=== PATIENT | male | born 2005 | race Caucasian/White ===

== ENCOUNTER 2023-11-26 20:01 | Emergency (ER) | payer OTHER, SELFPAY ==
--- OUTSIDE RECORDS SUMMARY | 2023-11-26 20:04 | XMS_ITS | Encounter Summary ---
Author Name Unknown Organization [facility] Address [address] [place] [phone] Phone Care Team Providers Care Oenologist Name Role Phone Adore Page MD Primary Care Provider [phone] Reason for Visit * Reason Comments Abnormal Lab New Patient Encounter Details Date Type Department Care Team ([facility] st Contact Info) Description 10/27/2023 10:45 AM MDT Office Visit [facility] [address] [facility] [address] [place], [place] [phone] [place] [address] [facility] [address] [place] [address] Essential proteinuria (Primary Dx); Hypercalcemia; Creatinine clearance-glomerular filtration outside reference range Social History Tobacco Use Types Packs/Day Years Used Date Smoking Tobacco: Never Smokeless Tobacco: Never Tobacco Cessation:Counseling Given: Not Answered Sex and Gender Information Value Date Recorded Sex Assigned at Not on file Gender Identity Not on file Sexual Orientation Not on file documented as of this encounter Last Filed Vital Signs Vital Sign Reading Time Taken Comments Blood Pressure 90/60 10/27/2023 11:02 AM EDT Pulse 60 10/27/2023 11:02 AM EDT Temperature - - Respiratory Rate - - Oxygen Saturation - - Inhaled Oxygen Concentration - - Weight 78 kg (172 lb) 10/27/2023 11:02 AM EDT Height - - Body Mass Index - - documented in this encounter Progress Notes * Ian Bautista MD - 10/27/2023 10:45 AM EDT [facility] Patient: Adria Puente Date of : 2005 Date of visit: 10/27/2023 Location: [id number] [place] Primary Care Physician: Adore Page MD, MD Referring Physician: No care team cdl driver to display Assessment For the last 5 years patient has been experiencing vague abdominal pain 1-2 times a year lasting 3-6 hours each time. Last episode was February 2023. CT scan of abdomen was normal. Kidneys were unremarkable. As part of workup proteinuria was noted which has been persistent. Last blood test in March 2023 shows he 115, creatinine 1.28, estimated GFR 83. Calcium 10.7. Urinalysis shows 2+ protein. CBC is normal. Blood pressure 90/60 with pulse 60. I need further blood and urine test to investigate proteinuria as well as hypercalcemia. Hypercalcemia may be explaining his abdominal pain. We need to rule out primary hyperparathyroidism. Patient may need a kidney biopsy. Plan Quantify proteinuria. Check PTH. Repeat blood and urine test. Ian Bautista MD Chief Complaint Patient presents with Abnormal Lab New Patient History of Present Illness: Adria Puente is a 17 y.o. male referred for A kidney evaluation. Past Medical History has no past medical history on file. has no past surgical history on file. Allergies: Patient has no known allergies. Medications: No current outpatient medications Family History: Grandmother has kidney stones. Social History: reports that he has never smoked. He has never used smokeless tobacco. Patient is a college student. Physical Exam: BP 90/60 (BP Location: Left arm, Patient Position: Sitting, BP Cuff Size: Adult) Pulse 60 Wt 172 lb (78 kg) No edema. Lungs are clear. Heart sounds are normal. Labs: I have reviewed the prior chart (including office notes, hospital notes, lab results, and imaging reports). documented in this encounter Plan of Treatment Scheduled Orders Name Type Priority Associated Diagnoses Orde r Schedule Antimyeloperoxidase (MPO) AB , Serum Lab Routine Essential proteinuria 1 Occurrences starting 10/27/2023 until 10/26/2024 Proteinase-3 AB (IA-3), Serum Lab Routine Essential proteinuria 1 Occurrences starting 10/27/2023 until 10/26/2024 documented as of this encounter Procedures Procedure Name Priority Date/Time Associated Diagnosis Comments ANTI-MPO ANTIBODIES Routine 10/27/2023 1 :58 PM EDT PTH, INTACT Routine 10/27/2023 1:58 PM EDT Hypercalcemia LUPUS PANEL (C3, C4, DSDNA), SERUM Routine 10/27/2023 1:58 PM EDT Essential proteinuria ANTIPROTEINASE 3 (IA-3) ABS Routine 10/27/2023 1:58 PM EDT URINALYSIS, COMPLETE, W/ REFLEX TO CULTURE Routine 10/27/2023 1:58 PM EDT Essential proteinuria TOTAL PROTEIN W/ CREATININE, URINE, RANDOM Routine 10/27/2023 1:58 PM EDT Essential proteinuria ALBUMIN / CREATININE RATIO, RANDOM, URINE Routine 10/27/2023 1:58 PM EDT Essential proteinuria MICROSCOPIC EXAMINATION Routine 10/27/2023 1:58 PM EDT CBC (INCLUDES DIFFERENTIAL/PLATELETS ) Routine 10/27/2023 1:58 PM EDT Essential proteinuria PHOSPHATE ( PHOSPHORUS), SERUM Routine 10/27/2023 1:58 PM EDT Hypercalcemia COMPREHENSIVE METABOLIC PANEL (CMP) Routine 10/27/2023 1:58 PM EDT Hypercalcemia documented in this encounter Results * Antiproteinase 3 (Pr-3) Abs (10/27/2023 1:58 PM EDT) Antiproteinase 3 (PR3) Antibodies <0.2 0.0 - 0.9 units [facility] 1 10/27/2023 1:58 PM EDT 10/27/2023 Narrative [facility] - 10/30/2023 9:35 PM EDT Performed at: ??01 - [facility] [address] ??[id number] Meat Selector: Marquise Storey MD, Phone: ??[phone] Ian Bautista MD LAB BLOOD ORDERABLES Performing Organization Address [facility] Co de Phone Number [facility] * Anti-MPO Antibodies (10/27/2023 1:58 PM EDT) Pathologist [facility] Myeloperoxidase Ab, Serum <0.2 0.0 - 0.9 units [facility] 1 10/27/2023 1:58 PM EDT 10/27/2023 Narrative [facility] - 10/30/2023 9:35 PM EDT Performed at: ??01 - [facility] ??[id number] Meat Selector: Marquise Storey MD, Phone: ??[phone] Ian Bautista MD LAB BLOOD ORDERABLES Performing Organization Address [facility] Phone Number [facility] 1 * (ABNORMAL) Microsopic Examination (10/27/2023 1:58 PM EDT) Pathologist [facility] Leukocytes, Urine sediment None seen 0 - 5 /hpf [facility] 1 Erythrocytes, Urine sediment 0-2 0 - 2 /hpf [facility] 1 Epithelial cells, Urine sediment None seen 0 - 10 /hpf [facility] 1 Casts, Urine sediment None seen None seen /lpf [facility] 1 Unidentified crystals, Urine sediment Present(A) N/A [facility] 1 Crystals, Urine sediment Calcium Oxalate N/A [facility] 1 Bacteria, Urine sediment None seen None seen/Few [facility] 1 10/27/2023 1:58 PM EDT 10/27/2023 Narrative [facility] - 10/30/2023 9:35 PM EDT Performed at: ??01 - [address] ??[id number] Meat Selector: Marquise Storey MD, Phone: ??[phone] Ian Bautista MD LAB BLOOD ORDERABLES Performing Organization Address [facility] Co de Phone Number [facility] * Lupus Panel (C3, C4, dsDNA), Serum (10/27/2023 1:58 PM EDT) [facility] Complement C4, Serum/Plasma 24 12 - 38 mg/dL [facility] 1 Complement C3, Serum/Plasma 110 82 - 167 mg/dL [facility] 1 DNA double strand Ab, Serum 2 0 - 9 IU/mL [facility] 1 Comment: ? Negative ?<5 ? Equivocal ??5 - 9 ? Positive ?>9 Chromatin Ab, Serum/Plasma <0.2 0.0 - 0.9 AI [facility] 1 DAMION, Serum Negative Negative [facility] 1 10/27/2023 1:58 PM EDT 10/27/2023 Narrative [facility] - 10/30/2023 9:35 PM EDT Performed at: ??01 - [address] ??[id number] Meat Selector: Marquise Storey MD, Phone: ??[phone] Ian Bautista MD LAB BLOOD ORDERABLES [facility] 1 * Phosphate (as Phosphorus), Serum (10/27/2023 1:58 PM EDT) [facility] Phosphate, Serum/Plasma 3.5 3.4 - 5.5 mg/dL [facility] 1 Blood (Blood, Venous) 10/27/2023 1:58 PM EDT 10/27/2023 Narrative [facility] - 10/30/2023 9:35 PM EDT Performed at: ??01 - [facility] ??[id number] Meat Selector: Marquise Storey MD, Phone: ??[phone] Ian Bautista MD LAB BLOOD ORDERABLES Performing Organization Address [facility] Co de Phone Number [facility] * (ABNORMAL) PTH, Intact (10/27/2023 1:58 PM EDT) Pathologist [facility] PTH, Intact, Serum/Plasma 12(L) 15 - 65 pg/mL [facility] 1 10/27/2023 1:58 PM EDT 10/27/2023 Narrative [facility] - 10/30/2023 9:35 PM EDT Performed at: ??01 - [facility] ??[id number] Meat Selector: Marquise Storey MD, Phone: ??[phone] Ian Bautista MD LAB BLOOD ORDERABLES Performing Organization Address [facility] Co de Phone Number [facility] * (ABNORMAL) Comprehensive Metabolic Panel (CMP) (10/27/2023 1:58 PM EDT) Pathologist [facility] Glucose, Serum/Plasma 74 70 - 99 mg/dL [facility] 1 Urea nitrogen, Serum/Plasma (BUN) 19 6 - 20 mg/dL [facility] 1 Creatinine, Serum/Plasma 1.10 0.76 - 1.27 mg/dL [facility] 1 Estimated Glomerular Filtration Rate (eGFR) 99 >59 mL/min/1. 73 [facility] 1 Urea nitrogen/Creatinine, Serum/Plasma 17 9 - 20 [facility] 1 Sodium, Serum/Plasma 141 134 - 144 mmol/L [facility] 1 Potassium, Serum/Plasma 5.0 3.5 - 5.2 mmol/L [facility] 1 Chloride, Serum/Plasma 101 96 - 106 mmol/L [facility] 1 Carbon dioxide CO2), total, Serum/Plasma 28 20 - 29 mmol/L [facility] 1 Calcium, Serum/Plasma 10.3(H) 8.7 - 10.2 mg/dL [facility] 1 TOTAL PROTEIN 7.0 6.0 - 8.5 g/dL [facility] 1 Albumin, Serum/Plasma 4.8 4.3 - 5.2 g/dL [facility] 1 Globulin, Serum 2.2 1.5 - 4.5 g/dL [facility] 1 Albumin/Globulin, Serum/Plasma 2.2 1.2 - 2.2 [facility] 1 Bilirubin, total, Serum/Plasma 0.4 0.0 - 1.2 mg/dL [facility] 1 Alkaline phosphatase, Serum/Plasma 66 51 - 125 IU/L [facility] 1 Aspartate Aminotransferase (AST), Serum/Plasma 17 0 - 40 IU/L [facility] 1 Alanine Aminotransferase (ALT), Serum/Plasma 14 0 - 44 IU/L [facility] 1 Blood (Blood, Venous) 10/27/2023 1:58 PM EDT 10/27/2023 Narrative [facility] - 10/30/2023 9:35 PM EDT Performed at: ??01 - [address] ??[id number] Meat Selector: Marquise Storey MD, Phone: ??[phone] Ian Bautista MD LAB BLOOD ORDERABLES [facility] * CBC (includes Differential/Platelets) (10/27/2023 1:58 PM EDT) Pathologist [facility] Leukocytes, Blood 5.8 3.4 - 10.8 x10E3/uL [facility] 1 Erythrocytes (RBC) 5.24 4.14 - 5.80 x10E6/uL [facility] 1 Hemoglobin (HGB) 16.4 13.0 - 17.7 g/dL [facility] 1 Hematocrit (HCT) 48.3 37.5 - 51.0 % [facility] 1 MCV 92 79 - 97 fL [facility] 1 MCH 31.3 26.6 - 33.0 pg [facility] 1 MCHC 34.0 31.5 - 35.7 g/dL [facility] 1 Erythrocyte Distribution Width (RDW) 12.0 11.6 - 15.4 % [facility] 1 Platelets, Blood 238 150 - 450 x10E3/uL [facility] 1 Neutrophils/100 leukocytes, Blood 65 Not Estab. % [facility] 1 Lymphocytes/100 leukocytes, Blood 27 Not Estab. % [facility] 1 Monocytes/100 leukocytes, Blood 5 Not Estab. % [facility] 1 Eosinophils/100 leukocytes, Blood 2 Not Estab. % [facility] 1 Basophils/100 leukocytes, Blood 1 Not Estab. % [facility] 1 Neutrophils, Blood 3.7 1.4 - 7.0 x10E3/uL [facility] 1 Lymphocytes, Blood 1.5 0.7 - 3.1 x10E3/uL [facility] 1 Monocytes, Blood 0.3 0.1 - 0.9 x10E3/uL [facility] 1 Eosinophils, Blood 0.1 0.0 - 0.4 x10E3/uL [facility] 1 Basophils, Blood 0.1 0.0 - 0.2 x10E3/uL [facility] 1 Immature granulocytes/100 leukocytes, Blood 0 Not Estab. % [facility] 1 Immature granulocytes, Blood 0.0 0.0 - 0.1 x10E3/uL [facility] 1 Blood (Blood, Venous) 10/27/2023 1:58 PM EDT 10/27/2023 Narrative [facility] - 10/30/2023 9:35 PM EDT Performed at: ??01 - [facility] ??[id number] Meat Selector: Marquise Storey MD, Phone: ??[phone] Ian Bautista MD LAB BLOOD ORDERABLES Performing Organization Address [facility]/State/[facility] Co de Phone Number [facility] * (ABNORMAL) Total Protein w/ Creatinine, Urine, Random (10/27/2023 1:58 PM EDT) Creatinine, Urine 197.5 Not Estab. mg/dL [facility] 1 Protein, Urine 45.4 Not Estab. mg/dL [facility] 1 Protein/Creatin ine, Urine 230(H) 0 - 200 mg/g creat [facility] 1 10/27/2023 1:58 PM EDT 10/27/2023 Narrative [facility] - 10/30/2023 9:35 PM EDT Performed at: ??01 - [facility] [address] ??[id number] Meat Selector: Marquise Storey MD, Phone: ??[phone] Ian Bautista MD LAB URINE ORDERABLES Performing Organization Address [facility] de Phone Number [facility] * (ABNORMAL) Urinalysis, Complete, w/ Reflex to Culture (10/27/2023 1:58 PM EDT) Specific gravity of Urine 1.024 1.005 - 1.030 [facility] 1 pH of Urine 6.5 5.0 - 7.5 [facility] 1 Color of Urine Yellow Yellow [facility] 1 Appearance of Urine Clear Clear [facility] 1 Leukocyte esterase, Urine Negative Negative [facility] 1 Protein, Urine 1+(A) Negative/Tra ce [facility] 1 Glucose, Urine Negative Negative [facility] 1 Ketones, Urine Trace(A) Negative [facility] 1 Hemoglobin, Urine Negative Negative [facility] 1 Bilirubin, total, Urine Negative Negative [facility] 1 Urobilinogen, Urine 0.2 0.2 - 1.0 mg/dL [facility] 1 Nitrite, Urine Negative Negative [facility] 1 Microscopic Examination See below: [facility] 1 Comment:Microscopic was abner cated and was performed. Urinalysis Reflex Comment [facility] 1 Comment:This specimen will n ot reflex to a Urine Culture. 10/27/2023 1:58 PM EDT 10/27/2023 Narrative [facility] - 10/30/2023 9:35 PM EDT Performed at: ??01 - [facility] [address] ??[id number] Meat Selector: Marquise Storey MD, Phone: ??[phone] Ian Bautista MD LAB BLOOD ORDERABLES Performing Organization Address [facility]/ZIP Co de Phone Number [facility] * (ABNORMAL) Albumin/Creatinine Ratio, Random, Urine (10/27/2023 1:58 PM EDT) Microalbumin, Urine 212.9 Not Estab. ug/mL [facility] 1 Albumin/Creatin ine, Urine 108(H) 0 - 29 mg/g creat [facility] 1 Comment: ? Normal: ?0 - ??29 ? Moderately increased: 30 - 300 ? Severely increased: ? >300 Urine (Urine, Clean Catch) 10/27/2023 1:58 PM EDT 10/27/2023 Narrative [facility] - 10/30/2023 9:35 PM EDT Performed at: ??01 - [facility] [address] ??[id number] Meat Selector: Marquise Storey MD, Phone: ??[phone] Ian Bautista MD LAB URINE ORDERABLES Performing Organization Address City/State/[facility] Co de Phone Number [facility] 1 documented in this encounter Visit Diagnoses Diagnosis Essential proteinuria- Primary Hypercalcemia Creatinine clearance-glomerular filtration outside reference range documented in this encounter Care Teams Oenologist Relationship Specialty [place] [address] [facility] [address] [place] [id number] PCP - General Gastroenterology 10/26/23 documented as of this encounter
--- OUTSIDE RECORDS SUMMARY | 2023-11-26 20:04 | XMS_ITS | Clinical Summary ---
Author Name Unknown Organization [facility] Address [address] [place] [address] Care Team Providers Care Formstone Fitter Name Role Phone Adore Page Primary Care Provider [phone] Allergies No known active allergies Immunizations Name Administration Dates Next Due Influenza TIV (IM) 05/13/2014(Deferred: Patient Refused - did get 2014 vaccine) Social History Tobacco Use Types Packs/Day Years Used Date Smoking Tobacco: Never Sex and Gender Information Value Date Recorded Sex Assigned at Not on file Gender Identity Not on file Sexual Orientation Not on file Last Filed Vital Signs Vital Sign Reading Time Taken Comments Blood Pressure 113/48 07/19/2021 10:13 PM EST Pulse 60 07/19/2021 10:13 PM EST Temperature 36.7 ??C (98 ??F) 07/19/2021 4:19 PM EST Respiratory Rate 16 07/19/2021 10:13 PM EST Oxygen Saturation 98% 07/19/2021 10:13 PM EST Inhaled Oxygen Concentration - - Weight 70.3 kg (155 lb) 07/19/2021 4:19 PM EST Height 185.4 cm (6' 1) 07/19/2021 4:19 PM EST Body Mass Index 20.45 07/19/2021 4:19 PM EST Plan of Treatment Health Maintenance Due Date Last Done Comments HIV Screening 2005 Hepatitis C Screening 2005 HPV Vaccines (1 - Male 3-dos e series) 11/09/2018 DTaP,Tdap,and Td Vaccines (1 - Tdap) 11/09/2022 Hepatitis B Vaccines (1 of 3 - 19+ 3-dose series) 11/09/2022 Influenza Vaccine (Season Ended) 2024 06/03/20 Respiratory Syncytial Virus (RSV) Immunizations HM Topic for 60 years or older & patients (1 - 1-dose 60+ series) 2063 Pneumococcal 65+ (1 of 1 - PCV) 11/09/2068 HIB Vaccines Aged Out No longer eligi ble based on patient's age to complete this topic Hepatitis A Vaccines Aged Out No long er eligible based on patient's age to complete this topic IPV Vaccines Aged Out No longer eligi ble based on patient's age to complete this topic Meningococcal Vaccine Aged Out No zach familia eligible based on patient's age to complete this topic Pneumococcal 0-64 yrs Aged Out No zach familia eligible based on patient's age to complete this topic Respiratory Syncytial Virus (RSV) Immunizations HM Topic (Under 20 months) Aged Out No longer eligible b ased on patient's age to complete this topic Care Teams Formstone Fitter Relationship Specialty Start Date End Date Adore Page [address] [place], [place] PCP - General Internal Medicine 07/19/21
--- OUTSIDE RECORDS SUMMARY | 2023-11-26 20:04 | XMS_ITS | Clinical Summary ---
Author Name Unknown Organization [facility] Address [address] [place] [address] Phone Care Team Providers Care Technology Integration Specialist Name Role Phone Adore Page MD Primary Care Provider [phone] Allergies No known active allergies Medications No known medications Active Problems Problem Noted Date Diagnosed Date Hypercalcemia 10/31/2023 Encounters Date Type Department Care Team Description 10/27/2023 10:45 AM MDT [facility] [address] [phone] Ian Bautista MD Essential proteinuria (Primary Dx); Hypercalcemia; Creatinine clearance-glomerular filtration outside reference range from Last 3 Months Social History Tobacco Use Types Packs/Day Years [...] - - Body Mass Index - - Plan of Treatment Health Maintenance Due Date Last Done Comments Pneumococcal PPSV23 Highest Risk Adult (1 of 3 - PCV13 ) 11/09/2022 Influenza Vaccine (Season Ended) 2024 Procedures Procedure Name Priority Date/Time Associated Diagnosis Comments ANTIPROTEINASE 3 (GA-3) ABS Routine 10/27/2023 1:58 PM EDT ANTI-MPO ANTIBODIES Routine 10/27/2023 1 :58 PM EDT MICROSCOPIC EXAMINATION Routine 10/27/2023 1:58 PM EDT LUPUS PANEL (C3, C4, DSDNA), SERUM Routine 10/27/2023 1:58 PM EDT Essential proteinuria PHOSPHATE ( PHOSPHORUS), SERUM Routine 10/27/2023 1:58 PM EDT Hypercalcemia PTH, INTACT Routine 10/27/2023 1:58 PM EDT Hypercalcemia COMPREHENSIVE METABOLIC PANEL (CMP) Routine 10/27/2023 1:58 PM EDT Hypercalcemia CBC (INCLUDES DIFFERENTIAL/PLATELETS ) Routine 10/27/2023 1:58 PM EDT Essential proteinuria TOTAL PROTEIN W/ CREATININE, URINE, RANDOM Routine 10/27/2023 1:58 PM EDT Essential proteinuria URINALYSIS, COMPLETE, W/ REFLEX TO CULTURE Routine 10/27/2023 1:58 PM EDT Essential proteinuria ALBUMIN / CREATININE RATIO, RANDOM, URINE Routine 10/27/2023 1:58 PM EDT Essential proteinuria from Last 3 Months Results * Anti-MPO Antibodies (10/27/2023 1:58 PM EDT) Myeloperoxidase Ab, Serum <0.2 0.0 - 0.9 units [facility] 1 10/27/2023 1:58 PM EDT 10/27/2023 Narrative [facility] - 10/30/2023 9:35 PM EDT Performed at: ??01 - [facility] [address] ??[id number] Bond Analyst: Marquise Storey MD, Phone: ??[phone] Ian Bautista MD LAB BLOOD ORDERABLES [facility] * (ABNORMAL) PTH, Intact (10/27/2023 1:58 PM EDT) [facility] PTH, Intact, Serum/Plasma 12(L) 15 - 65 pg/mL [facility] 1 10/27/2023 1:58 PM EDT 10/27/2023 Narrative [facility] - 10/30/2023 9:35 PM EDT Performed at: ??01 - [facility] ??[id number] Bond Analyst: Marquise Storey MD, Phone: ??[phone] Ian Bautista MD LAB BLOOD ORDERABLES [facility] 1 * Lupus Panel (C3, C4, dsDNA), Serum (10/27/2023 1:58 PM EDT) [facility] Complement C4, Serum/Plasma 24 12 - 38 [...] 9:35 PM EDT Performed at: ??01 - [facility] ??[id number] Bond Analyst: Marquise Storey MD, Phone: ??[phone] Ian Bautista MD LAB BLOOD ORDERABLES Performing Organization Address [facility] de Phone Number [facility] * Antiproteinase 3 (Pr-3) Abs (10/27/2023 1:58 PM EDT) Pathologist [facility] Antiproteinase 3 (PR3) Antibodies <0.2 0.0 - 0.9 units [facility] 1 10/27/2023 1:58 PM EDT 10/27/2023 Narrative [facility] - 10/30/2023 9:35 PM EDT Performed at: ??01 - [facility] ??[id number] Bond Analyst: Marquise Storey MD, Phone: ??[phone] Ian Bautista MD LAB BLOOD ORDERABLES Performing Organization Address [facility] de Phone Number [facility] * (ABNORMAL) Urinalysis, Complete, w/ Reflex to Culture (10/27/2023 1:58 PM EDT) [facility] Specific gravity of Urine 1.024 1.005 - [...] 9:35 PM EDT Performed at: ??01 - [facility] ??[id number] Bond Analyst: Marquise Storey MD, Phone: ??[phone] Ian Bautista MD LAB BLOOD ORDERABLES Performing Organization Address [facility] Phone Number [facility] * (ABNORMAL) Total Protein w/ Creatinine, Urine, Random (10/27/2023 1:58 PM EDT) Creatinine, Urine 197.5 Not Estab. mg/dL [facility] 1 Protein, Urine 45.4 Not Estab. mg/dL [facility] 1 Protein/Creatin ine, Urine 230(H) 0 - 200 mg/g creat [facility] 1 10/27/2023 1:58 PM EDT 10/27/2023 Narrative [facility] - 10/30/2023 9:35 PM EDT Performed at: ??01 - [facility] ??[id number] Bond Analyst: Marquise Storey MD, Phone: ??[phone] Ian Bautista MD LAB URINE ORDERABLES Performing Organization Address [facility] Phone Number [facility] 1 * (ABNORMAL) Albumin/Creatinine Ratio, Random, [...] PM EDT Performed at: ??01 - [facility] [address] ??[id number] Bond Analyst: Marquise Storey MD, Phone: ??[phone] Ian Bautista MD LAB URINE ORDERABLES Performing Organization Address [facility] de Phone Number [facility] * (ABNORMAL) Microsopic Examination (10/27/2023 1:58 PM EDT) Leukocytes, Urine sediment None seen 0 - [...] PM EDT Performed at: ??01 - [facility] [address] ??[id number] Bond Analyst: Marquise Storey MD, Phone: ??[phone] Ian Bauitsta MD LAB BLOOD ORDERABLES Performing Organization Address [facility] de Phone Number [facility] 1 * CBC (includes Differential/Platelets) (10/27/2023 1:58 PM EDT) Leukocytes, Blood 5.8 3.4 - 10.8 x10E3/uL [...] PM EDT Performed at: ??01 - [facility] [address] ??[id number] Bond Analyst: Marquise Storey MD, Phone: ??[phone] Ian Bautista MD LAB BLOOD ORDERABLES [facility] 1 * Phosphate (as Phosphorus), Serum (10/27/2023 1:58 PM EDT) Phosphate, Serum/Plasma 3.5 3.4 - 5.5 mg/dL [facility] 1 Blood (Blood, Venous) 10/27/2023 1:58 PM EDT 10/27/2023 Narrative [facility] - 10/30/2023 9:35 PM EDT Performed at: ??01 - [facility] [address] ??[id number] Bond Analyst: Marquise Storey MD, Phone: ??[phone] Ian Bautista MD LAB BLOOD ORDERABLES Performing Organization Address [facility]/ZIP Co de Phone Number [facility] 1 * (ABNORMAL) Comprehensive Metabolic Panel (CMP) (10/27/2023 1:58 PM EDT) Glucose, Serum/Plasma 74 70 - 99 mg/dL [...] PM EDT Performed at: ??01 - [facility] [address] ??[id number] Bond Analyst: Marquise Storey MD, Phone: ??[phone] Ian Bautista MD LAB BLOOD ORDERABLES Performing Organization Address City/State/[facility] Co de Phone Number [facility] 1 from Last 3 Months Care Teams Technology Integration Specialist Relationship Specialty [place] [address] [facility] [address] [phone] PCP - General Gastroenterology 10/26/23
--- OUTSIDE RECORDS SUMMARY | 2023-11-26 20:05 | XMS_ITS ---
Author Name [facility] Organization Unknown Assessment and Plan ID Update Date Source Alert Text [facility] Physician [id number] 03/28/2023 [facility] Physician [facility] Date: [id number]:27:00.000-04 :00eventType: Outpatient Registration [facility] Physician [facility]-[id number] 03/28/2023 [facility] admitReason: ABDOMINAL PAINDate: [id number]:27:00.000-04 :00eventType: Outpatient Registration [facility] Physician [facility]- 08/14/2023 [facility] Physician [facility] Physician [facility] Physician [facility]- 08/14/2023 [facility] Physician [facility] Physician [facility] [id number] 12/14/2020 [facility] [id number] COVID Vaccination: This patient has received the [employer] COVID-19 vaccination on 12/14/2020 with lot number [id number] at [facility].
--- OUTSIDE RECORDS SUMMARY | 2023-11-26 20:05 | XMS_ITS | Clinical Summary ---
Author Name Unknown Organization [facility] Address [address] [place] [address] Care Team Providers Care Radio Mechanic Name Role Phone Unavailable Primary Care Provider Unavailabl e Social History Tobacco Use Types Packs/Day Years Used Date Smoking Tobacco: Never Assessed Sex and Gender Information Value Date Recorded Sex Assigned at Not on file Gender Identity Not on file Sexual Orientation Not on file Plan of Treatment Not on file
[2023-11-26 20:15] VITALS: BP 147/74; PULSE 56; RESP 16; TEMP 36.6; O2SAT 98; BMI 23.1
[2023-11-26 20:53] LABS: Strep A DNA Probe* NOT DETECTED (Not Detectd)
--- NOTE | 2023-11-26 21:04 | ED_ITS ---
HPI - General Adult General Chief complaint: Sore Throat Stated complaint: lymph nodes swelling, hard to eat and swallow food Time Seen by Provider: 11/26/23 20:51 History of Present Illness HPI narrative: This 18-year-old male comes in reporting sore throat over the past week or so. He does not report any fevers or cough. He does not have any trismus or muffled voice. He feels like his neck in general is a bit swollen. Related Data Home Medications Medication Instructions Recorded Confirmed albuterol sulfate 90 mcg/actuation 2 puff inhalation Q6H PRN 11/25/22 11/25/22 aerosol inhaler (Ventolin HFA) cetirizine 10 mg tablet (Zyrtec) 20 mg PO QDAY PRN 11/25/22 11/25/22 Allergies Allergy/AdvReac Type Severity Reaction Status Date / Time No Known Drug Allergies Allergy Verified 11/25/22 15:12 Review of Systems Status of ROS: Reports: 10 or more systems reviewed and unremarkable except as noted in History and below Narrative: Constitutional: No fevers, no weight gain or loss. Eyes: No discharge. No vision changes. HENT: No congestion, no ear pain. Sore throat as described above. Cardiovascular: No chest pain, no palpitations. Respiratory: No shortness of breath, no wheezes, no cough. Gastrointestinal: No abdominal pain, no vomiting, no diarrhea. Genitourinary: No dysuria, no hematuria. Musculoskeletal: Normal range of motion. Skin: No rashes, no pruritis. Neurological: No dizziness, weakness, sensory change, speech change. Endo/Heme/Allergies: No bruising or bleeding. No polydipsia. Pysch: no suicidality, no anxiety, no insomnia. All other systems reviewed and are negative. [facility] Social History Smoking Status: Never smoker Exam Narrative: Exam Narrative: Constitutional: Well-developed, well-nourished, no acute distress. HEENT: Normocephalic, atraumatic. Oropharynx appears normal without tonsillar swelling or exudate. There is some mild erythema. Neck: Normal range of motion. Nontender. Supple. Heart: Regular. No murmurs. Normal rate. Intact distal pulses. Lungs: Clear to auscultation. No chest discomfort. No wheezes, rhonchi, or rales. Abdomen: Normal bowel sounds. Nontender. No rebound tenderness. Genitalia: Deferred. Back: No midline tenderness. Normal range of motion. Extremities: Normal range of motion. No injury. Skin: Intact. No rash. Warm. No erythema or pallor. Neurologic: No altered sensation. No weakness. Alert and oriented. Psychiatric: No suicidality. No anxiety or depression. No insomnia. Nursing notes and vitals signs are reviewed. Const: Vital Signs, click to edit/add: Vital Signs - 24 hr 11/26/23 20:15 Temperature 97.9 F Pulse Rate [Left P ulse Oximeter] 56 L Respiratory Rate 16 Blood Pressure [Ri ght Upper Arm] 147/74 H Pulse Oximetry 98 Oxygen Delivery Me thod Room Air Course Vital Signs Vital signs: Initial Vital Signs Temperature 97.9 F 11/26/23 20:15 Temperature Source Temporal Artery Scan 11/26/23 20:15 Pulse Rate 56 L 11/26/23 20:15 Pulse Rhythm Regular 11/26/23 20:15 Respiratory Rate 16 11/26/23 20:15 Blood Pressure 147/74 H 11/26/23 20:15 Blood Pressure Mean 98 11/26/23 20:15 Blood Pressure Position Sitting 11/26/23 20:15 Pulse Oximetry 98 11/26/23 20:15 Oxygen Delivery Method Room Air 11/26/23 20:15 Vital Signs Temperature 97.9 F 11/26/23 20:15 Pulse Rate 56 L 11/26/23 20:15 Respiratory Rate 16 11/26/23 20:15 Blood Pressure 147/74 H 11/26/23 20:15 Pulse Oximetry 98 11/26/23 20:15 Oxygen Delivery Method Room Air 11/26/23 20:15 Temperature 97.9 F 11/26/23 20:15 Pulse Rate 56 L 11/26/23 20:15 Respiratory Rate 16 11/26/23 20:15 Blood Pressure 147/74 H 11/26/23 20:15 Pulse Oximetry 98 11/26/23 20:15 Oxygen Delivery Method Room Air 11/26/23 20:15 Medical Decision Making MDM Narrative Medical decision making narrative: This patient comes in reporting sore throat for the past week. Rapid strep test is obtained and returns negative. The patient's exam and vital signs are reassuring. I stated it is most likely due to a virus. He did receive an oral dose of dexamethasone 10 mg. I encouraged use of [id number]-qaw-obarbsu medicines for symptomatic relief and describe signs and symptoms that would indicate a need for return and re-evaluation. Lab Data Labs: Lab Results 11/26/23 Range/Units 20:24 Group A Strep DNA NOT DETECTED (Not Detectd) Discharge Plan Discharge Clinical Impression: Pharyngitis Patient Disposition: Home, Self-Care Condition: Stable Additional Instructions: Use [id number] medicines as needed and directed. Follow up with MD return if worsening symptoms happen. Prescriptions: No Action cetirizine [Zyrtec] 10 mg tablet 20 mg PO QDAY PRN albuterol sulfate [Ventolin HFA] 90 mcg/actuation HFA aerosol inhaler 2 puff inhalation Q6H PRN Stand Alone Forms: RayV Info Instructions
[2023-11-26] MEDS: dexAMETHasone 10 MG/ML inj PO (21:10)
--- OUTSIDE RECORDS SUMMARY | 2023-11-26 21:12 | XMS_ITS | Clinical Summary ---
Author Name Unknown Organization [facility] Address [address] [place] [address] Phone Care Team Providers Care End Polisher Name Role Phone Adore Page MD Primary Care Provider [phone] Allergies No known active allergies Medications No known medications Active Problems Problem Noted Date Diagnosed Date Hypercalcemia 10/31/2023 Encounters Date Type Department Care Team Description 10/27/2023 10:45 AM MDT [facility] [address] [phone] Ian Bautista MD Essential proteinuria (Primary Dx); [...] Priority Date/Time Associated Diagnosis Comments ANTIPROTEINASE 3 (IA-3) ABS Routine 10/27/2023 1:58 PM EDT ANTI-MPO [...] PM EDT Performed at: ??01 - [facility] [address] ??[id number] Assurance Manager: Marquise Storey MD, Phone: ??[phone] Ian Bautista MD LAB BLOOD ORDERABLES [facility] * (ABNORMAL) PTH, Intact (10/27/2023 1:58 PM EDT) [facility] PTH, Intact, Serum/Plasma 12(L) 15 - 65 pg/mL [facility] 1 10/27/2023 1:58 PM EDT 10/27/2023 Narrative [facility] - 10/30/2023 9:35 PM EDT Performed at: ??01 - [facility] ??[id number] Assurance Manager: Marquise Storey MD, Phone: ??[phone] Ian Bautista MD LAB BLOOD ORDERABLES [facility] 1 * Lupus Panel (C3, C4, dsDNA), Serum (10/27/2023 1:58 PM EDT) [facility] Complement C4, Serum/Plasma 24 12 - 38 [...] 9:35 PM EDT Performed at: ??01 - [facility] ??[id number] Assurance Manager: Marquise Storey MD, Phone: ??[phone] Ian Bautista MD LAB BLOOD ORDERABLES Performing Organization Address [facility] de Phone Number [facility] 1 * Antiproteinase 3 (Pr-3) Abs (10/27/2023 1:58 PM EDT) Pathologist [facility] Antiproteinase 3 (PR3) Antibodies <0.2 0.0 - 0.9 units [facility] 1 10/27/2023 1:58 PM EDT 10/27/2023 Narrative [facility] - 10/30/2023 9:35 PM EDT Performed at: ??01 - [facility] ??[id number] Assurance Manager: Marquise Storey MD, Phone: ??[phone] Ian Bautista MD LAB BLOOD ORDERABLES Performing Organization Address [facility] de Phone Number [facility] 1 * (ABNORMAL) Urinalysis, Complete, w/ Reflex to Culture (10/27/2023 1:58 PM EDT) [facility] Specific gravity of Urine 1.024 1.005 - [...] 9:35 PM EDT Performed at: ??01 - [facility] ??[id number] Assurance Manager: Marquise Storey MD, Phone: ??[phone] Ian Bautista MD LAB BLOOD ORDERABLES Performing Organization Address [facility] Phone Number [facility] 1 * (ABNORMAL) Total Protein w/ Creatinine, Urine, Random (10/27/2023 1:58 PM EDT) Creatinine, Urine 197.5 Not Estab. mg/dL [facility] 1 Protein, Urine 45.4 Not Estab. mg/dL [facility] 1 Protein/Creatin ine, Urine 230(H) 0 - 200 mg/g creat [facility] 1 10/27/2023 1:58 PM EDT 10/27/2023 Narrative [facility] - 10/30/2023 9:35 PM EDT Performed at: ??01 - [facility] ??[id number] Assurance Manager: Marquise Storey MD, Phone: ??[phone] Ian Bautista MD LAB URINE ORDERABLES Performing Organization Address [facility] Phone Number [facility] 1 * (ABNORMAL) [...] PM EDT Performed at: ??01 - [facility] [address] ??[id number] Assurance Manager: Marquise Storey MD, Phone: ??[phone] Ian Bautista MD LAB URINE ORDERABLES Performing Organization Address [facility] de Phone Number [facility] [...] PM EDT Performed at: ??01 - [facility] [address] ??[id number] Assurance Manager: Marquise Storey MD, Phone: ??[phone] Ian Bautista MD LAB BLOOD ORDERABLES Performing Organization Address [facility] de Phone Number [facility] [...] PM EDT Performed at: ??01 - [facility] [address] ??[id number] Assurance Manager: Marquise Storey MD, Phone: ??[phone] Ian Bautista MD LAB BLOOD ORDERABLES [facility] 1 * Phosphate (as Phosphorus), Serum (10/27/2023 1:58 PM EDT) Phosphate, Serum/Plasma 3.5 3.4 - 5.5 mg/dL [facility] 1 Blood (Blood, Venous) 10/27/2023 1:58 PM EDT 10/27/2023 Narrative [facility] - 10/30/2023 9:35 PM EDT Performed at: ??01 - [facility] [address] ??[id number] Assurance Manager: Marquise Storey MD, Phone: ??[phone] Ian Bautista MD LAB BLOOD ORDERABLES Performing Organization Address [facility]/ZIP Co de Phone Number [facility] 1 [...] PM EDT Performed at: ??01 - [facility] [address] ??[id number] Assurance Manager: Marquise Storey MD, Phone: ??[phone] Ian Bautista MD LAB BLOOD ORDERABLES Performing Organization Address City/State/[facility] Co de Phone Number [facility] 1 from Last 3 Months Care Teams End Polisher Relationship Specialty [place] [address] [facility] [address] [address] PCP - General Gastroenterology 10/26/23
--- OUTSIDE RECORDS SUMMARY | 2023-11-26 21:12 | XMS_ITS | Encounter Summary ---
Author Name Unknown Organization [facility] Address [address] [place] [address] Phone Care Team Providers Care Manager Fixed Income Name Role Phone Adore Page MD Primary Care Provider [phone] Reason for Visit * Reason Comments Abnormal Lab New Patient Encounter Details Date Type Department Care Team ([facility] st Contact Info) Description 10/27/2023 10:45 AM MDT [facility] [address] [facility] [address] [place], [place] [phone] [place] [address] [facility] [address] [place] [address] Essential proteinuria (Primary Dx); Hypercalcemia; Creatinine clearance-glomerular [...] - 10/27/2023 10:45 AM EDT [facility] Patient: Adria Puente Date of : 2005 Date of visit: 10/27/2023 Location: [id number] [place] Primary Care Physician: Adore Page MD, MD Referring Physician: No care body team member to display Assessment For the last 5 [...] Occurrences starting 10/27/2023 until 10/26/2024 Proteinase-3 AB (DE-3), Serum Lab Routine Essential proteinuria 1 Occurrences starting 10/27/2023 until 10/26/2024 documented as of this encounter Procedures Procedure Name Priority Date/Time Associated Diagnosis Comments ANTI-MPO ANTIBODIES Routine 10/27/2023 1 :58 PM EDT PTH, INTACT Routine 10/27/2023 1:58 PM EDT Hypercalcemia LUPUS PANEL (C3, C4, DSDNA), SERUM Routine 10/27/2023 1:58 PM EDT Essential proteinuria ANTIPROTEINASE 3 (DE-3) ABS Routine 10/27/2023 1:58 PM EDT URINALYSIS, [...] PM EDT Performed at: ??01 - [facility] [address] ??[id number] Butane Compressor Operator: Marquise Storey MD, Phone: ??[phone] Ian Bautista MD LAB BLOOD ORDERABLES Performing Organization Address [facility] Co de Phone Number [facility] 1 * Anti-MPO Antibodies (10/27/2023 1:58 PM EDT) Pathologist [facility] Myeloperoxidase Ab, Serum <0.2 0.0 - 0.9 units [facility] 1 10/27/2023 1:58 PM EDT 10/27/2023 Narrative [facility] - 10/30/2023 9:35 PM EDT Performed at: ??01 - [facility] ??[id number] Butane Compressor Operator: Marquise Storey MD, Phone: ??[phone] Ian Bautista MD LAB BLOOD ORDERABLES Performing Organization Address [facility] Phone Number [facility] 1 * (ABNORMAL) Microsopic Examination (10/27/2023 1:58 PM EDT) Pathologist [facility] Leukocytes, Urine sediment None seen 0 - [...] 9:35 PM EDT Performed at: ??01 - [facility] ??[id number] Butane Compressor Operator: Marquise Storey MD, Phone: ??[phone] Ian Bautista MD LAB BLOOD ORDERABLES Performing Organization Address [facility] Co de Phone Number [facility] 1 * Lupus Panel (C3, C4, dsDNA), Serum (10/27/2023 1:58 PM EDT) [facility] Complement C4, Serum/Plasma 24 12 - [...] 1 10/27/2023 1:58 PM EDT 10/27/2023 Narrative [facility] - 10/30/2023 9:35 PM EDT Performed at: ??01 - [address] ??[id number] Butane Compressor Operator: Marquise Storey MD, Phone: ??[phone] Ian Bautista MD [facility]OD [facility]AB[facility] * Phosphate (as Phosphorus), Serum (10/27/2023 1:58 PM EDT) [facility] Phosphate, Serum/Plasma 3.5 3.4 - 5.5 mg/dL [facility] 1 Blood (Blood, Venous) 10/27/2023 1:58 PM EDT 10/27/2023 Narrative [facility] - 10/30/2023 9:35 PM EDT Performed at: ??01 - [facility] ??[id number] Butane Compressor Operator: Marquise Storey MD, Phone: ??[phone] Ian Bautista MD LAB BLOOD ORDERABLES Performing Organization Address [facility] Co de Phone Number [facility] 1 * (ABNORMAL) PTH, Intact (10/27/2023 1:58 PM EDT) Pathologist [facility] PTH, Intact, Serum/Plasma 12(L) 15 - 65 pg/mL [facility] 1 10/27/2023 1:58 PM EDT 10/27/2023 Narrative [facility] - 10/30/2023 9:35 PM EDT Performed at: ??01 - [facility] ??[id number] Butane Compressor Operator: Marquise Storey MD, Phone: ??[phone] Ian Bautista MD LAB BLOOD ORDERABLES Performing Organization Address [facility] Co de Phone Number [facility] 1 * (ABNORMAL) Comprehensive Metabolic Panel (CMP) (10/27/2023 1:58 PM EDT) Pathologist [facility] Glucose, Serum/Plasma 74 70 - 99 mg/dL [...] 9:35 PM EDT Performed at: ??01 - [address] ??[id number] Butane Compressor Operator: Marquise Storey MD, Phone: ??[phone] Ian Bautista MD LAB BLOOD ORDERABLES [facility] 1 * CBC (includes Differential/Platelets) (10/27/2023 1:58 PM EDT) Pathologist [facility] Leukocytes, Blood 5.8 3.4 - 10.8 x10E3/uL [...] 9:35 PM EDT Performed at: ??01 - [facility] ??[id number] Butane Compressor Operator: Marquise Storey MD, Phone: ??[phone] Ian Bautista MD LAB BLOOD ORDERABLES Performing Organization Address [facility]/State/[facility] Co de Phone Number [facility] [...] PM EDT Performed at: ??01 - [facility] [address] ??[id number] Butane Compressor Operator: Marquise Storey MD, Phone: ??[phone] Ian Bautista MD LAB URINE ORDERABLES Performing Organization Address [facility] de Phone Number [facility] 1 [...] PM EDT Performed at: ??01 - [facility] [address] ??[id number] Butane Compressor Operator: Marquise Storey MD, Phone: ??[phone] Ian Bautista MD LAB BLOOD ORDERABLES Performing Organization Address [facility]/ZIP Co de Phone Number [facility] 1 [...] PM EDT Performed at: ??01 - [facility] [address] ??[id number] Butane Compressor Operator: Marquise Storey MD, Phone: ??[phone] Ian Bautista MD LAB URINE ORDERABLES Performing Organization Address City/State/[facility] Co de Phone Number [facility] 1 documented in this encounter Visit Diagnoses Diagnosis Essential proteinuria- Primary Hypercalcemia Creatinine clearance-glomerular filtration outside reference range documented in this encounter Care Teams Manager Fixed Income Relationship Specialty [place] [address] [facility] [address] [place] [id number] PCP - General Gastroenterology 10/26/23 documented as of this encounter
--- OUTSIDE RECORDS SUMMARY | 2023-11-26 21:12 | XMS_ITS | Clinical Summary ---
Author Name Unknown Organization [facility] Address [address] [place] [address] Care Team Providers Care Aerospace Quality Engineer Name Role Phone Adore Page Primary Care Provider [phone] Allergies No known active allergies Immunizations Name [...] age to complete this topic Care Teams Aerospace Quality Engineer Relationship Specialty Start Date End Date Adore Page [address] [place], [place] PCP - General Internal Medicine 07/19/21
--- OUTSIDE RECORDS SUMMARY | 2023-11-26 21:12 | XMS_ITS | Clinical Summary ---
Author Name Unknown Organization [facility] Address [address] [place] [address] Care Team Providers Care Shut Off Worker Name Role Phone Unavailable Primary Care Provider Unavailabl e Social History Tobacco Use Types Packs/Day Years Used Date Smoking Tobacco: Never Assessed Sex and Gender Information Value Date Recorded Sex Assigned at Not on file Gender Identity Not on file Sexual Orientation Not on file Plan of Treatment Not on file
--- OUTSIDE RECORDS SUMMARY | 2023-11-26 21:12 | XMS_ITS | Data Portability ---
Author Name Unknown Address [address] [place] [address] Phone [phone] Organization [facility] [employer], [facility] [facility]* Address [address] [place] [phone] Care Team Providers Care Chief Airport Guide Name Role Phone AMARJIT NELSON [employer] Supervisor [phone] RANDELL GAONA Primary Care Provider Assessment No assessment recorded. Plan of Treatment Reminders Order Date Submit Date Provider Last Modified By Organization Details Last Modified Time Details Appointments None recorded. Lab None recorded. Referral None recorded. Procedures None recorded. Surgeries None recorded. Imaging None recorded. Medication Orders Neilmed Sinus Rinse Complete with packet [id number], [address] [place], [address], 14:46:10 levocetiriz ine 5 mg tablet [email or web address], [address] [place], [address], 14:46:10 Pataday Once Daily Relief 0.7 % eye drops 2020 [email or web address] [facility], [address] [place], [address], 1 14:46:10 [place] Saline nasal gel 2020 021 [email or web address] [facility], [address] [place], [address], 14:46:10 Patient TargetsNo targets recorded. Patient Instructions Encounter Date Encounter Id Patient Instructions Last Modified By Organization Details Last Modified Time 04/06/2021 [id number] sino-nasal outco me test* Not available 04/06/2021 14:13:02 * If needed, you can schedule a virtual visit through our website [employer]. * Also available: ? 06/03 Virtual ER [email or web address] * Please follow up with our office and your provider as directed. We'd like to see you back for follow up in {{1 2 3 4 5 6 7 8 9 10 11 12 NOVEMBER#} } {{days weeks month s year 2021 as previously discussed with Dr. Nelson#}} Not available 04/06/2021 14:08:23 03/08/2021 [id number] sino-nasal outco me test* [email or web address] Not available 03/08/2021 14:46:10 Documentation of total provider time for this visit for this patient on today's date of service: {{New Patient: 15-29 min New Patient: 30-44 min New Patient: 45-59 min* New Patient: 60-74 min Established Patient: 10-19 min Established Patient: 20-29 min Established Patient: 30-39 min Established Patient: 40-54 min}} were spent by this provider on today's date of service for total time of care for the patient and this encounter to include: prep time, time with patient, coordination of care, correspondence with the patient's care team, other miscellaneous work and documentation of the above. Not available 03/08/2021 14:44:11 Reason for Referral None Reported. Results Created Date Observation Date Name Description Value Unit Range Abnormal Flag LastModifiedBy Organization Detail LastModifiedTime 03/08/20 21 03/08/2021 sino- nasal outco me test* [email or web address] score 16 Not Available In- Office Order Internal Use Only DO Not Attach Compendium DO Not Attach Compendium, Do Not Delete/merge, [id number] 03/08/2021 14:23:57 04/06/20 21 04/06/2021 sino- nasal outco me test* snot22 score 0 Not Available In- Office Order Internal Use Only DO Not Attach Compendium DO Not Attach Compendium, Do Not Delete/merge, [id number] 04/06/2021 07:49:05 Result Notes None recorded. Problems Name Status Onset Date Resolution Date Notes Provider Name and Address Organization Details Recorded Time No current problems or disability Active Lety Monsivais [facility] 03/08/2021 14:14:39 Allergic rhinitis Active 03/08/20 21 Amarjit Nelson MD [address] [place] [address],[place], [address] , [facility] 03/08/2021 14:43:36 Allergic urticaria Active 03/08/20 21 Amarjit Nelson MD [address] [place] [address],[place], [address] , [facility] 03/08/2021 14:45:15 Allergic conjunctivitis Active 04/06/20 21 USAMA Palomares [address] [place] [address],[place] A, [place], [address] , [facility] 04/06/2021 07:54:10 Abdominal pain Active 04/06/20 21 USAMA Palomares [address] [place] [address],[place] A, [place], [address] , [facility] 04/06/2021 07:54:14 Problem Notes None recorded. Procedures Surgical History Date Name Laterality Status Provider Name and Address Organization Details Recorded Time 04/06/20 Skin Test - Food - Brief completed Hortencia Best [facility] 04/06/2021 13:26:27 03/08/20 Procedure completed Lety Monsivais [facility] 03/08/2021 15:15:53 03/08/20 21 Skin Test - Aeroallergen Prick completed Letycyrus Monsivais [facility] 03/08/2021 15:02:23 Imaging Results None recorded. Procedure Notes None recorded. Medical Equipment None Reported. Allergies No known drug allergies Medications Name Sig Start Date Stop Date Status Note LastModified by Organization Details LastModified Time [place] Saline nasal gel Take 1 application 6 times a day by nasal route as directed. 2020 active Not Available Not Available Not Avai lable levocetirizi ne 5 mg tablet Take 1 tablet every day by oral route for 90 days. 2020 active Not Available Not Available Not Avai lable Neilmed Sinus Rinse Complete with packet 1 sinus rinse once to twice daily or more frequently if needed. Use before medicated nasal sprays and/or after allergen exposure or sinus infections. Rinse with gently warmed distilled water. Rinse gently and empty nose completely before medicated nasal sprays. Change bottle every 3 months, do not use if painful or if the rinse makes symptoms worse. Do not use tap water and never use well water. 2020 active Not Available Not Available Not Anne lable Pataday Once Daily Relief 0.7 % eye drops INSTILL 1 DROP INTO AFFECTED EYE(S) BY OPHTHALMIC ROUTE ONCE DAILY 2020 active Not Available Not Available Not Jayai lable Vitals Date Recorded Body height Body mass index (BMI) Body mass index (BMI) Percentile per age and sex Body weight Heart rate Oxygen saturation Oxygen saturation in Arterial blood by Pulse oximetry Provider Name and Address Organization Details Last Updated DateTime 185.42 cm 20.4 kg/m2 35 % 38229.8 2 g 57 /min 98 % 98 % Lety Monsivais [facility] 14:12:35 Date Recorded Body height Body mass index (BMI) Percentile per age and sex Body mass index (BMI) Body weight Provider Name and Address Organization Details Last Updated DateTime 04/06/2021 185.42 cm 34 % 20.4 kg/m2 60207.82 g Peewee Ellis [facility] 04/06/2021 12:40:24 Social History Question Answer Notes LastModified by Organizat ion Details LastModified Time Pet Sleeping Arrangement In Bed Information not available 03/08/2021 Do You Have Any Pets? Yes Information not available 03/08/2021 Sex: Male Functional Status None recorded. Mental Status None recorded. Family History Relationship Description Onset Age of this Age Resolved Age Notes Father Asthma Father Seasonal allergy Father Allergy to food Medical History No medical history recorded. Immunizations Vaccine Type Date Status Provider Name and Address Organization Details Recorded Time COVID-19, mRNA, LNP-S, PF, 30 mcg/0.3 mL dose 12/14/2020 completed [facility] 04/06/2021 13:30:51 COVID-19, mRNA, LNP-S, PF, 30 mcg/0.3 mL dose 11/22/2020 completed [facility] 04/06/2021 13:30:51 influenza, intradermal, quadrivalent, preservative free 05/14/2021 completed [facility] 04/06/2021 13:30:51 Influenza, injectable, MDCK, preservative free, quadrivalent 06/08/2020 completed [facility] 04/06/2021 13:30:51 Novel [id number], nasal 08/05/2009 completed [facility] 04/06/2021 13:30:51 Novel [id number], all formulations 06/02/2009 completed [facility] 04/06/2021 13:30:51 Influenza, injectable, MDCK, preservative free, quadrivalent 06/29/2018 completed [facility] 04/06/2021 13:30:51 Past Encounters Encounter ID Performer Location Encounter Start Date Encounter Closed Date Diagnosis/Indication Diagnosis SNOMED-CT Code [id number] Amarjit Nelson MD [facility] Office* [address] [place] [phone] 03/08/2021 13:57:00 03/08/2021 15:42:45 Allergic rhinitis 31730185 Allergic urticaria 32107 009 Anterior epistaxis 05265 4002 [id number] USAMA Palomares [facility]* [address] [place] [phone] 04/06/2021 12:35:18 04/06/2021 13:47:21 Allergic rhinitis 70768539 Allergic urticaria 57537 009 Abdominal pain 20404613 Allergic conjunctivitis 825047708 Health Concerns Section Related Observation LastModified by Organization Detai ls LastModified Time None Recorded Concern Status LastModified by Organization Details LastModified Time None Recorded Advance Directives Directive None Recorded Payers Encounter Date Sequence Insurance Name Policy Number Policy Arnett Covered Member ID Arnett Member ID Guarantor Name 04/06/2021 1 [facility] [id number] Kirk Puente [id number] Kirk Puente 03/08/2021 1 [facility] [id number] Kirk Puente [id number] Kirk Puente Notes Date Note Type Note Provider Name and Address Organization Details Recorded Time 03/08/2021 text/html HPI Notes: [place] No te: Pt is here with his father for allergy testing. Pt reports seasonal allergies beginning a few years ago. Pt notes playing in a sports tournament in [facility] this spring and experiencing an outbreak of hives on all exposed skin. Pt took benadryl, showered, and hives resolved. Played in the tournament the next day and had another outbreak, this time lasting for a few days. Benadryl helps with itching but does not fully resolve hives. Pt takes claritin and zyrtec daily for nasal and eye symptoms, uses nasonex on occasion. Pt also notes daily nose bleeds during allergy season. MT Dr. Nelson's notes: Above HPI from [facility] staff reviewed and edited as appropriate. Amarjit Nelson MD [address] [place] [address], [phone], [facility] 03/08/2021 15:26:19 04/06/2021 text/html HPI Notes: Fareed mcintosh is a 15 y/o male who presents with his mother and has a history of allergic rhinitis, allergic urticaria, and epistaxis. His YUSEF was 03/08/[address] Nelson. He is a new patient to me, thus his chart was extensively reviewed prior to his appt. He scheduled today for food skin testing. AR/AC - STs in 02/2021 (+) T/G/W/DM. Off of antihistamines to prepare for testing. ABD PAIN - About 2-3 times a year, Adria will experience severe abdominal pain which can lead to nausea and vomiting. They have not found a pattern to what he has eaten, but would like to further investigate this. Pt actually had an episode yesterday. Pain went from a 1-2/10 to an 8/10 which progressed over several hours. He woke up yesterday around 10:30 am and ate a banana with [employer] yogurt. He then ate a couple of very greasy pepperoni pizza slices that he tried to blot off the extra grease around 1 pm and drank lemonade. He was only working on math homework during the day until he started to notice a very slight abdominal discomfort in the late afternoon (1/10), he then went to [facility] practice x 1.5 hrs which involves running and the discomfort only increased to about a 2/10. He tried to drink a lot of water which sometimes helps to street off an attack. He ate dinner around 8 pm which consisted of a restaurant prepared fried BBQ wings with blue cheese sauce and a grain bowl containing rice, tuna, seaweed, chipotle sauce. He has eaten these foods multiple times in the past without incident. Discomfort started to worsen around 9 pm and by 11:30 it has excalated to an 8/10. Started to vomit at that time which will provide temporary relief. Vomited 5 times over the next few hours and symptoms abated by around 2 am. He did try to take ibuprofen in between vomiting episodes, but vomited it up. No other meds taken that day. No other associated symptoms. Has been evaluated by GI and US was WNL. Labs were also reportedly WNL. They are planning to get a second opinion from GI, but want to r/o food allergy. FROM HIS INITIAL EVAL with DR. NELSON on 03/08/2021 - [place] Note: Pt is here with his father for allergy testing. Pt reports seasonal allergies beginning a few years ago. Pt notes playing in a sports tournament in [employer] this spring and experiencing an outbreak of hives on all exposed skin. Pt took benadryl, showered, and hives resolved. Played in the tournament the next day and had another outbreak, this time lasting for a few days. Benadryl helps with itching but does not fully resolve hives. Pt takes claritin and zyrtec daily for nasal and eye symptoms, uses nasonex on occasion. Pt also notes daily nose bleeds during allergy season. MT Dr. Nelson's notes: Above HPI from [facility] staff reviewed and edited as appropriate. USAMA Palomares [address] [address],[place], [place], [address], [facility] 04/06/2021 14:16:25
== END 2023-11-26 21:16 | disposition home or self-care (01) ==
LOC: ED 21:10
PROVIDERS: Emergency Provider Emergency Medicine Emergency Medical Services
DX: J02.9 Acute pharyngitis, unspecified (principal)
CPT/HCPCS: 87651; 99282; 99283; 99284; J1100